=== PATIENT | male | born 1960 | race Hispanic/Latino ===

== ENCOUNTER 2019-04-30 14:26 | Observation (INO) | payer BC ==
[~2019-04-30] VITALS: Ht 175.3 cm; Wt 86.0 kg
[2019-04-30] VITALS (9 sets, daily range): BP systolic 113–141; BP diastolic 47–87
[2019-04-30] MEDS ORDERED: FENTANYL CITRATE PF 50 MCG/1 ML 2ML VIAL ONE (14:53)
[2019-04-30 15:08] LABS: BASOPHILS % (AUTO) 0.2 % (0.0-5.0); EOSINOPHILS % (AUTO) 0.8 % (0.0-8.0); HEMATOCRIT 47.5 % (42-54); LYMPHOCYTES % (AUTO) 10.5 % (21.0-51.0); MEAN CORPUSCULAR HEMOGLOBIN 31.7 pg (27.0-33.0); MEAN CORPUSCULAR HGB CONC 33.8 g/dL (32.0-36.0); MEAN CORPUSCULAR VOLUME 93.8 fL (79-99); MONOCYTES % (AUTO) 5.5 % (3.0-13.0); NUCLEATED RED BLOOD CELLS 0.1 % (0.0-0.19); PLATELET COUNT (AUTO) 215 K/uL (130-400); RED BLOOD CELL COUNT(AUTO) 5.07 MIL/uL (4.50-6.20); RED CELL DISTRIBUTION WIDTH 13.4 % (11.0-15.5); WHITE BLOOD COUNT (AUTO) 12.3 K/uL (4.8-10.8)
[2019-04-30 15:18] LABS: CREATININE 1.1 mg/dL (0.5-1.5); POTASSIUM 4.2 mmol/L (3.5-5.1)
[2019-04-30 15:20] LABS: PARTIAL THROMBOPLASTIN TIME 24.3 SEC (26.3-35.5); PROTHROMBIN TIME 10.5 SEC (9.6-11.6)
[2019-04-30 15:25] LABS: ALBUMIN 3.7 g/dL (3.5-5.0); BILIRUBIN,TOTAL 0.7 mg/dL (0.2-1.0); TOTAL PROTEIN, SERUM 6.6 g/dL (6.0-8.3)
[2019-04-30] MEDS ORDERED: HEPARIN SODIUM 5000UNIT/ML 1ML VIAL SQ SCH (15:26)
[2019-04-30] MEDS ORDERED: HEPARIN 25000 UNITS/250 ML D5W 250 ML IV PRN (15:27)
[2019-04-30 15:35] LABS: B-TYPE NATRIURETIC PEPTIDE 14 pg/mL (0-100)
[2019-04-30] MEDS ORDERED: ONDANSETRON HCL 4 MG/2 ML VIAL IV PRN (16:15)
[2019-04-30] MEDS ORDERED: MORPHINE SULFATE 2 MG/ML 1ML SYG IVP PRN (16:15)
[2019-04-30] MEDS ORDERED: NITROGLYCERIN 5 MG/ML 10 ML VIAL IV ONE (16:59)
[2019-04-30] MEDS ORDERED: IOHEXOL 350 MG/ML 100ML INFUS..BTL IV ONE (16:59)
[2019-04-30] MEDS ORDERED: IOHEXOL-350 50ML VIAL IV ONE (16:59)
[2019-04-30] MEDS ORDERED: LIDOCAINE HCL 2% 20ML ONE (16:59)
[2019-04-30] MEDS ORDERED: BIVALIRUDIN 250 MG/VIAL IV ONE (17:27)
[2019-04-30] MEDS ORDERED: TICAGRELOR 90 MG TABLET ONE (17:27)
[2019-04-30] MEDS ORDERED: SODIUM CHLORIDE 0.9% 1000ML 1,000 ML IV SCH (18:10)
[2019-04-30] MEDS ORDERED: NITROGLYCERIN 0.4 MG SL TAB SL PRN (18:15)
[2019-04-30] MEDS ORDERED: HYDRALAZINE HCL 20 MG/ML VIAL IV PRN (18:15)
--- NOTE | 2019-04-30 19:10 | NUR ---
POST PROCEDURE RECEIVED PT FROM [employer], IN FLAT POSITION, A&OX3, CALM COOPERATIVE AND DOES NOT APPEAR TO BE IN ANY DISTRESS NOR ANY NEURO DEFICITS PRESENT. PT DENIES PAIN, SOB, NAUSEA. RT GROIN SOFT NONTENDER WITH NO OOZING OR HEMATOMA PRESENT. DP/PT PULSE PALPABLE. PT ON BEDREST. CALL LIGHT WITHIN REACH, FAMILY AT BEDSIDE.
[2019-04-30] MEDS ORDERED: TICAGRELOR 90 MG TABLET PO SCH (21:00)
[2019-04-30] MEDS ORDERED: ATORVASTATIN CALCIUM 20 MG TABLET PO SCH (21:00)
[2019-04-30] MEDS: FAMOTIDINE/PF 20 MG/2 ML VIAL IV SCH (21:11)
[2019-05-01 03:36] VITALS: BP 127/82
[2019-05-01 04:04] LABS: BASOPHILS % (AUTO) 0.3 % (0.0-5.0); EOSINOPHILS % (AUTO) 0.7 % (0.0-8.0); HEMATOCRIT 44.6 % (42-54); LYMPHOCYTES % (AUTO) 17.4 % (21.0-51.0); MEAN CORPUSCULAR HEMOGLOBIN 32.1 pg (27.0-33.0); MEAN CORPUSCULAR HGB CONC 34.4 g/dL (32.0-36.0); MEAN CORPUSCULAR VOLUME 93.5 fL (79-99); MONOCYTES % (AUTO) 8.8 % (3.0-13.0); NEUTROPHILS % (AUTO) 72.8 % (40.0-77.0); NUCLEATED RED BLOOD CELLS 0.1 % (0.0-0.19); PLATELET COUNT (AUTO) 219 K/uL (130-400); RED BLOOD CELL COUNT(AUTO) 4.78 MIL/uL (4.50-6.20); RED CELL DISTRIBUTION WIDTH 13.5 % (11.0-15.5); WHITE BLOOD COUNT (AUTO) 10.3 K/uL (4.8-10.8)
[2019-05-01 04:19] LABS: HEMOGLOBIN A1C 5.7 % (4.0-6.0)
[2019-05-01 04:26] LABS: CREATININE 1.1 mg/dL (0.5-1.5); POTASSIUM 3.9 mmol/L (3.5-5.1)
[2019-05-01] MEDS: TICAGRELOR 90 MG TABLET PO SCH ×2 (05:29→16:46)
[2019-05-01 07:24] VITALS: BP 125/79
--- NOTE | 2019-05-01 07:45 | NUR ---
ASSESSMENT ENCOUNTERED PT ASLEEP BUT AROUSEABLE, A&OX3, CALM COOPERATIVE AND DOES NOT APPEAR TO BE IN ANY DISTRESS NOR ANY NEURO DEFICITS PRESENT. TELEMONITOR DISPLAYS SINUS BRADYCARDIA 50-55 BEATS PER MINUTE PT DENIES PAIN, SOB, NAUSEA. RT GROIN SOFT NONTENDER WITH NO OOZING OR HEMATOMA PRESENT. DP/PT PULSES PALPABLE. PT IS AMBULATORY, GAIT STEADY AND STRONG WITH STAND BY ASSIST.
[2019-05-01] MEDS ORDERED: ASPIRIN 81MG TAB.CHEW PO SCH (09:00)
[2019-05-01] MEDS ORDERED: LISINOPRIL 10 MG TABLET PO SCH (09:00)
[2019-05-01] MEDS ORDERED: ASPIRIN 325 MG TABLET PO SCH (09:00)
[2019-05-01] MEDS ORDERED: LISINOPRIL 2.5 MG TABLET ONE (10:06)
[2019-05-01] MEDS: FAMOTIDINE/PF 20 MG/2 ML VIAL IV SCH (10:14)
[2019-05-01 11:13] VITALS: BP 116/72
--- NOTE | 2019-05-01 15:00 | NUR ---
AMBULATION PT AMBULATING IN HALLWAY, GAIT STEADY AND STRONG WITH STAND BY ASSIST. PT DENIES PAIN, DIZZINESS, LIGHTHEADEDNESS OR SOB. RT GROIN SOFT NONTENDER WITH NO OOZING OR HEMATOMA PRESENT. DP/PT PULSES PALPABLE. CALL LIGHT WITHIN REACH, FAMILY AT BEDSIDE.
--- NOTE | 2019-05-01 16:30 | NUR ---
DISCHARGE INSTRUCTIONS GIVEN, PIV REMOVED AND INTACT, DISCHARGED HOME TO FAMILY VEHICLE VIA WHEELCHAIR.
== END 2019-05-01 17:10 | disposition home or self-care (01) ==
LOC: EDH 14:26 → UNDOADMIN 15:58 → EDHIP 15:58 → INTOOBSV 16:14 → 2DH 18:27
PROVIDERS: ADMIT Hospitalist; ATTEND Hospitalist
DX: I21.4 Non-ST elevation (NSTEMI) myocardial infarction (principal); I25.10 Atherosclerotic heart disease of native coronary artery without angina pectoris; I10 Essential (primary) hypertension; I45.10 Unspecified right bundle-branch block; I48.91 Unspecified atrial fibrillation; F17.210 Nicotine dependence, cigarettes, uncomplicated; K21.9 Gastro-esophageal reflux disease without esophagitis; Z82.49 Family history of ischemic heart disease and other diseases of the circulatory system; Z95.5 Presence of coronary angioplasty implant and graft; Z79.899 Other long term (current) drug therapy
CPT/HCPCS: 36415 ×2; 71045; 80048; 80053; 80061; 83036; 83880; 84484; 85025 ×2; 85610; 85730; 93005 ×2; 93306; 93458; 96374; 96376; 99291; C1725; C1760; C1769; C1874; C1887 ×2; C1894 ×2; C9600; G0378 ×25; J0583; J1644 ×3; J3010; J3490 ×4; Q9965 ×2; Q9967 ×2